=== PATIENT | female | born 1960 | race Caucasian/White ===

== ENCOUNTER 2018-04-13 21:54 | Inpatient (IN) | payer OTHER ==
[2018-04-13] MEDS ORDERED: SODIUM CHLORIDE 0.9% 1,000 ML IV STA (22:10)
[2018-04-13] MEDS ORDERED: SODIUM CHLORIDE 0.9% 500 ML 500 ML IV STA (22:10)
--- NOTE | 2018-04-13 22:13 | ED ---
Weakness HPI - General Stated complaint: Blood sugar 471, dehydrated, diarrhea Source: patient, family, RN notes reviewed, old records reviewed Mode of arrival: wheelchair Limitations: no limitations - History of Present Illness Initial comments: This is a 50-year-old female the ER for evaluation. Patient has no history of diabetes, patient is on insulin. Patient comes in today for uncontrolled blood sugars, generalized body pain and aches. Denies fever. She has 3 days of nausea vomiting and diarrhea decreased appetite. Weakness no known sick contacts, no recent hospitalizations. MD Complaint: generalized weakness, lack of energy, difficulty walking -: days(s) Location: generalized Severity: severe Severity scale (1-10): 9 Quality: aching Consistency: constant Improves with: none Worsens with: none Context: recent illness (Diarrhea) Associated Symptoms: loss of appetite, nausea/vomiting, shortness of breath - Related Data Home Medications Medication Instructions Recorded Confirmed No Known Home Medications 04/13/18 04/13/18 Allergies Allergy/AdvReac Type Severity Reaction Status Date / Time amoxicillin Allergy Rash/Hives Verified 04/13/18 23:45 Penicillins Allergy Unknown Verified 04/13/18 23:45 Childhood any medication with Gold Allergy Unknown Uncoded 04/13/18 22:13 Review of Systems ROS Statement: Those systems with pertinent positive or pertinent negative responses have been documented in the HPI. ROS Other: All systems not noted in ROS Statement are negative. 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 Absent: scleral icterus, conjunctival injection, periorbital swelling ENT exam: Present: normal exam, mucous membranes moist Neck exam: Present: normal inspection. Absent: tenderness, meningismus, lymphadenopathy Respiratory exam: Present: normal lung sounds bilaterally. Absent: respiratory distress, wheezes, rales, rhonchi, stridor Cardiovascular Exam: Present: regular rate, normal rhythm, normal heart sounds. Absent: systolic murmur, diastolic murmur, rubs, gallop, clicks GI/Abdominal exam: Present: soft, normal bowel sounds. Absent: distended, tenderness, guarding, rebound, rigid Extremities exam: Present: normal inspection, full ROM, normal capillary refill. Absent: tenderness, pedal edema, joint swelling, calf tenderness Back exam: Present: normal inspection Neurological exam: Present: alert, oriented X3, CN II-XII intact Psychiatric exam: Present: normal affect, normal mood Skin exam: Present: warm, dry, intact, normal color. Absent: rash Course Vital Signs 04/13/18 22:04 Temperature 97.9 F Pulse Rate 95 Respiratory 16 Rate Blood Pressure 99/66 O2 Sat by Pulse 100 Oximetry - Reevaluation(s) Reevaluation #1: 04/14/18 00:27 Medical record is reviewed Reevaluation #2: 04/14/18 00:27 Patient feeling better with symptomatic therapy EKG Findings - EKG Comments: EKG Findings:: EKG shows sinus tachycardia rate of 104, [place] 144, QRS 74, QTc 436 Medical Decision Making - Medical Decision Making 50 female the ER for evaluation presents for evaluation nausea vomiting diarrhea. Patient has diabetes, in acute DKA, patient be admitted for hydration monitoring of electrolytes and DKA protocol. - Lab Data Result diagrams: 04/13/18 23:00 04/13/18 23:00 Lab Results 04/13/18 04/13/18 04/13/18 Range/Units 23:00 23:00 23:00 WBC 19.8 H (3.8-10.6) k/uL RBC 4.09 (3.80-5.40) m/uL Hgb 11.4 (11.4-16.0) gm/dL Hct 35.5 (34.0-46.0) % MCV 87.0 (80.0-100.0) fL MCH 27.8 (25.0-35.0) pg MCHC 32.0 (31.0-37.0) g/dL RDW 13.5 (11.5-15.5) % Plt Count 315 (150-450) k/uL Neutrophils % 89 % Lymphocytes % 5 % Monocytes % 4 % Eosinophils % 0 % Basophils % 1 % Neutrophils # 17.6 H (1.3-7.7) k/uL Lymphocytes # 1.0 (1.0-4.8) k/uL Monocytes # 0.8 (0-1.0) k/uL Eosinophils # 0.0 (0-0.7) k/uL Basophils # 0.1 (0-0.2) k/uL PT (9.0-12.0) sec INR (<1.2) APTT (22.0-30.0) sec Sodium 128 L (137-145) mmol/L Potassium 4.3 (3.5-5.1) mmol/L Chloride 89 L (98-107) mmol/L Carbon Dioxide 17 L (22-30) mmol/L Anion Gap 22 mmol/L BUN 23 H (7-17) mg/dL Creatinine 0.70 (0.52-1.04) mg/dL Est GFR (CKD-EPI)AfAm >90 (>60 ml/min/1.73 sqM) Est GFR (CKD-EPI)NonAf >90 (>60 ml/min/1.73 sqM) Glucose 490 H (74-99) mg/dL Plasma Lactic Acid Segundo (0.7-2.0) mmol/L Calcium 8.6 (8.4-10.2) mg/dL Phosphorus 3.4 (2.5-4.5) mg/dL Magnesium 2.0 (1.6-2.3) mg/dL Total Bilirubin 0.6 (0.2-1.3) mg/dL AST 18 (14-36) U/L ALT 24 (9-52) U/L Alkaline Phosphatase 374 H (38-126) U/L Total Creatine Kinase 55 (30-135) U/L CK-MB (CK-2) 2.7 H (0.0-2.4) ng/mL CK-MB (CK-2) Rel Index 4.9 Troponin I <0.012 (0.000-0.034) ng/mL Total Protein 6.1 L (6.3-8.2) g/dL Albumin 3.1 L (3.5-5.0) g/dL Acetone, Qual Positive (Negative) 04/13/18 04/13/18 Range/Units 23:00 23:00 WBC (3.8-10.6) k/uL RBC (3.80-5.40) m/uL Hgb (11.4-16.0) gm/dL Hct (34.0-46.0) % MCV (80.0-100.0) fL MCH (25.0-35.0) pg MCHC (31.0-37.0) g/dL RDW (11.5-15.5) % Plt Count (150-450) k/uL Neutrophils % % Lymphocytes % % Monocytes % % Eosinophils % % Basophils % % Neutrophils # (1.3-7.7) k/uL Lymphocytes # (1.0-4.8) k/uL Monocytes # (0-1.0) k/uL Eosinophils # (0-0.7) k/uL Basophils # (0-0.2) k/uL PT 10.9 (9.0-12.0) sec INR 1.0 (<1.2) APTT 22.4 (22.0-30.0) sec Sodium (137-145) mmol/L Potassium (3.5-5.1) mmol/L Chloride (98-107) mmol/L Carbon Dioxide (22-30) mmol/L Anion Gap mmol/L BUN (7-17) mg/dL Creatinine (0.52-1.04) mg/dL Est GFR (CKD-EPI)AfAm (>60 ml/min/1.73 sqM) Est GFR (CKD-EPI)NonAf (>60 ml/min/1.73 sqM) Glucose (74-99) mg/dL Plasma Lactic Acid Segundo 2.4 H* (0.7-2.0) mmol/L Calcium (8.4-10.2) mg/dL Phosphorus (2.5-4.5) mg/dL Magnesium (1.6-2.3) mg/dL Total Bilirubin (0.2-1.3) mg/dL AST (14-36) U/L ALT (9-52) U/L Alkaline Phosphatase (38-126) U/L Total Creatine Kinase (30-135) U/L CK-MB (CK-2) (0.0-2.4) ng/mL CK-MB (CK-2) Rel Index Troponin I (0.000-0.034) ng/mL Total Protein (6.3-8.2) g/dL Albumin (3.5-5.0) g/dL Acetone, Qual (Negative) Disposition Clinical Impression: DKA (diabetic ketoacidoses) Disposition: ADMITTED IP TO THIS HOSP Condition: Fair Instructions: Diabetic Ketoacidosis (DC) Is patient prescribed a controlled substance at d/c from ED?: No Referrals: None,Stated [Primary Care Provider] - 1-2 days
[2018-04-13 23:11] LABS: Basophils # (A) 0.1 k/uL (0-0.2); Basophils % (A) 1 %; Eosinophils % (A) 0 %; HCT 35.5 % (34.0-46.0); HGB 11.4 gm/dL (11.4-16.0); Lymphocytes % (A) 5 %; MCH 27.8 pg (25.0-35.0); Mean Platelet Volume 7.9; Monocytes # (A) 0.8 k/uL (0-1.0); Monocytes % (A) 4 %; Neutrophils # (A) 17.6 k/uL (1.3-7.7); Neutrophils % (A) 89 %; Platelet Count 315 k/uL (150-450); RBC 4.09 m/uL (3.80-5.40); RDW 13.5 % (11.5-15.5); WBC 19.8 k/uL (3.8-10.6)
[2018-04-13 23:19] LABS: Partial Thromboplastin Time 22.4 sec (22.0-30.0); Prothrombin Time 10.9 sec (9.0-12.0)
[2018-04-13 23:26] LABS: ALT 24 U/L (9-52); AST 18 U/L (14-36); Albumin 3.1 g/dL (3.5-5.0); Alkaline Phosphatase 374 U/L (38-126); Anion Gap 22 mmol/L; Blood Urea Nitrogen 23 mg/dL (7-17); Calcium 8.6 mg/dL (8.4-10.2); Carbon Dioxide 17 mmol/L (22-30); Chloride 89 mmol/L (98-107); Glucose 490 mg/dL (74-99); Phosphorus 3.4 mg/dL (2.5-4.5); Potassium 4.3 mmol/L (3.5-5.1); Sodium 128 mmol/L (137-145); Total Bilirubin 0.6 mg/dL (0.2-1.3); Total Protein 6.1 g/dL (6.3-8.2)
[2018-04-13 23:35] LABS: Creatine Kinase 55 U/L (30-135)
--- NOTE | 2018-04-13 23:42 | XR ---
EXAMINATION TYPE: XR chest 2V DATE OF EXAM: 04/13/2018 COMPARISON: NONE HISTORY: Diabetes TECHNIQUE: Frontal and lateral views of the chest are obtained. FINDINGS: There is no heart failure nor confluent pneumonic infiltrate. There is slight elevated rig ht diaphragm. There is no pleural effusion. Heart size is normal. There are chest leads. IMPRESSION: No active cardiopulmonary disease.
[2018-04-13 23:48] LABS: Creatine Kinase MB 2.7 ng/mL (0.0-2.4); Troponin I <0.012 ng/mL (0.000-0.034)
[2018-04-14] MEDS ORDERED: ONDANSETRON 4 MG/2 ML VIAL IVP STA (00:40)
[2018-04-14] MEDS ORDERED: MORPHINE SULFATE 4 MG/ML SYRINGE IVP PRN (00:55)
[2018-04-14] MEDS ORDERED: MORPHINE SULFATE 4 MG/ML SYRINGE IVP STA (00:55)
[2018-04-14] MEDS: INSULIN REGULAR 100 UNIT in SODIUM CHLORIDE 0.9% 100 ML IV SCH ×2 (01:01→10:18)
[2018-04-14] MEDS: SODIUM CHLORIDE 0.9% 1,000 ML IV SCH ×5 (02:00→13:13)
[2018-04-14] MEDS ORDERED: NALOXONE 0.4 MG/ML 1 ML VIAL IV PRN (02:11)
--- NOTE | 2018-04-14 02:22 | P.HPIM ---
History of Present Illness H&P Date: 04/14/18 Chief Complaint: Generalized weakness polydipsia polyuria 58-year-old female with history of diabetes however not on any medications as patient unable to afford. Patient presented the hospital due to 2-3 day history of generalized weakness for appetite polyuria polydipsia belly cramps. Today she almost passed out and family insisted on bringing her to the hospital for further evaluation. She has been over the past 8 years controlling her sugars with dietary control and drinking lot of water. She denies any recent sick contacts or hospitalization. She denies any symptoms suggestive of urinary tract infection or upper respiratory infection. Patient is accompanied by her daughters. She is more awake now during my interview. Patient denies any chest pain or trouble breathing denies any headache denies any focal neurologic deficits at this point denies any GI bleeding. In the emergency department she was found to be in acute DKA and was started on DKA pathway Review of Systems Pertinent positives as noted in HPI. All other systems were reviewed and are negative Past Medical History Past Medical History: Diabetes Mellitus, Fibromyalgia, Thyroid Disorder Additional Past Medical History / Comment(s): valley fever History of Any Multi-Drug Resistant Organisms: None Reported Past Surgical History: Section, Cholecystectomy Additional Past Surgical History / Comment(s): partial thyroidectomy Past Anesthesia/Blood Transfusion Reactions: Postoperative Nausea & Vomiting ( PONV) Additional Past Anesthesia/Blood Transfusion Reaction / Comment(s): no hx of BT Smoking Status: Never smoker - Past Family History Father Additional Family Medical History / Comment(s): from "blood clot" after surgery. Pt can't remember the name of the surgery Mother Additional Family Medical History / Comment(s): severe arthritis Medications and Allergies Home Medications Medication Instructions Recorded Confirmed Type No Known Home Medications 04/13/18 04/13/18 History Allergies Allergy/AdvReac Type Severity Reaction Status Date / Time amoxicillin Allergy Rash/Hives Verified 04/13/18 23:45 Penicillins Allergy Unknown Verified 04/13/18 23:45 Childhood any medication with Gold Allergy Unknown Uncoded 04/13/18 22:13 Physical Exam Vitals: Vital Signs Temp Pulse Pulse Resp BP BP Pulse Ox 04/14/18 01:55 99.4 F 105 H 17 133/85 97 04/14/18 01:04 104 H 20 129/70 99 04/13/18 22:04 97.9 F 95 16 99/66 100 Intake and Output 04/13/18 04/13/18 04/14/18 14:59 22:59 06:59 Intake Total 800 Balance 800 Intake: Amount of Fluid Infused ( 800 ml) Other: Weight 110.677 kg 107.5 kg Constitutional: No acute distress, conversant, pleasant patient looks sleepy Eyes: Anicteric sclerae, moist conjunctiva, no lid-lag Pupils equal round reactive to light ENMT: NC/AT Oropharynx clear, no erythema, exudates Neck: Supple, FROM, no masses, or JVD No carotid bruits No thyromegaly Lungs: Clear to auscultation Clear to percussion Normal respiratory effort, no accessory muscle use Cardiovascular: Heart regular in rate and rhythm, No murmurs, gallops, or rubs No peripheral edema Abdominal: Rash in the right groin with foul smell and tenderness to palpation. Soft Nontender, no guarding, rebound or rigidity Abdomen moving with respiration Normoactive bowel sounds No hepatomegaly, No splenomegaly No palpable mass No abdominal wall hernia noted Skin: Rash in the right groin area moist with foul smell and slightly tender to palpation Otherwise Normal temperature, tone, texture, turgor No induration No subcutaneous nodules No ulcers Extremities: No digital cyanosis No clubbing Pedal pulses intact and symmetrical Radial pulses intact and symmetrical No calf tenderness Psychiatric: Alert and oriented to person, place and time Appropriate affect fair judgment Neuro Muscles Strength 4/5 in all 4 extremities Sensation to light touch grossly present throughout Cranial nerves II-XII grossly intact No focal sensory deficits Lymphatics: no palpable cervical or supraclavicular , or inguinal lymph nodes Results CBC & Chem 7: 04/13/18 23:00 04/13/18 23:00 Labs: Abnormal Lab Results - Last 24 Hours (Table) 04/13/18 04/13/18 04/13/18 Range/Units 23:00 23:00 23:00 WBC 19.8 H (3.8-10.6) k/uL Neutrophils # 17.6 H (1.3-7.7) k/uL Sodium 128 L (137-145) mmol/L Chloride 89 L (98-107) mmol/L Carbon Dioxide 17 L (22-30) mmol/L BUN 23 H (7-17) mg/dL Glucose 490 H (74-99) mg/dL Plasma Lactic Acid Segundo (0.7-2.0) mmol/L Alkaline Phosphatase 374 H (38-126) U/L CK-MB (CK-2) 2.7 H (0.0-2.4) ng/mL Total Protein 6.1 L (6.3-8.2) g/dL Albumin 3.1 L (3.5-5.0) g/dL 04/13/18 Range/Units 23:00 WBC (3.8-10.6) k/uL Neutrophils # (1.3-7.7) k/uL Sodium (137-145) mmol/L Chloride (98-107) mmol/L Carbon Dioxide (22-30) mmol/L BUN (7-17) mg/dL Glucose (74-99) mg/dL Plasma Lactic Acid Segundo 2.4 H* (0.7-2.0) mmol/L Alkaline Phosphatase (38-126) U/L CK-MB (CK-2) (0.0-2.4) ng/mL Total Protein (6.3-8.2) g/dL Albumin (3.5-5.0) g/dL Assessment and Plan Assessment: 58-year-old female with history of diabetes mellitus is admitted as an inpatient with anticipated length of stay more than 48 hours resides in with DKA patient has not been taking any medications for her diabetes mellitus for the past 8 years as patient didn't have any insurance. She was managing with diet control. She denies any symptoms suggestive of upper respiratory infection or urinary tract infection. 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
[2018-04-14 02:30] LABS: Glucose,Whole Blood 340 mg/dL (75-99)
[2018-04-14] MEDS ORDERED: TRIAMCINOLONE ACET 0.5% CREAM 15 GM TUBE TOPICAL PRN (02:30)
[2018-04-14 03:11] LABS: Glucose,Whole Blood 261 mg/dL (75-99)
[2018-04-14] MEDS: D5-0.45% NACL WITH KCL 20MEQ/L 1,000 ML IV SCH ×2 (03:15→11:08)
[2018-04-14] MEDS: NYSTATIN 100,000UNIT/GM CREAM 30 GM TUBE TOPICAL SCH ×5 (03:49→21:49)
[2018-04-14 04:02] LABS: Anion Gap 18 mmol/L; Blood Urea Nitrogen 22 mg/dL (7-17); Carbon Dioxide 18 mmol/L (22-30); Chloride 95 mmol/L (98-107); Glucose 219 mg/dL (74-99); Phosphorus 2.3 mg/dL (2.5-4.5); Potassium 3.6 mmol/L (3.5-5.1); Sodium 131 mmol/L (137-145)
[2018-04-14 04:11] LABS: Glucose,Whole Blood 185 mg/dL (75-99)
[2018-04-14 05:09] LABS: Glucose,Whole Blood 147 mg/dL (75-99)
[2018-04-14] MEDS: ONDANSETRON 4 MG/2 ML VIAL IVP PRN ×2 (05:43→23:05)
[2018-04-14 06:00] LABS: Appearance,Urine Clear (Clear); Bacteria,Urine Rare /hpf; Bilirubin,Urine 1+ (Negative); Blood,Urine Negative (Negative); Color,Urine Yellow; Glucose,Urine (UA) 4+ (Negative); Leukocyte Esterase,Urine Negative (Negative); Mucus,Urine Rare /hpf; Nitrite,Urine Negative (Negative); PH, Urine 5.5 (5.0-8.0); Protein,Urine 1+ (Negative); RBC,Urine 1 /hpf (0-5); Specific Gravity,Urine 1.021 (1.001-1.035); WBC,Urine 4 /hpf (0-5)
[2018-04-14 06:14] LABS: Glucose,Whole Blood 135 mg/dL (75-99)
[2018-04-14 06:50] LABS: Ketones,Urine 3+ (Negative)
[2018-04-14 07:31] LABS: Glucose,Whole Blood 167 mg/dL (75-99)
[2018-04-14 07:33] LABS: Basophils # (A) 0.1 k/uL (0-0.2); Basophils % (A) 0 %; Eosinophils # (A) 0.1 k/uL (0-0.7); Eosinophils % (A) 1 %; HCT 32.7 % (34.0-46.0); HGB 10.7 gm/dL (11.4-16.0); Lymphocytes # (A) 1.1 k/uL (1.0-4.8); Lymphocytes % (A) 6 %; MCH 27.7 pg (25.0-35.0); MCHC 32.7 g/dL (31.0-37.0); MCV 84.8 fL (80.0-100.0); Mean Platelet Volume 7.5; Monocytes # (A) 0.7 k/uL (0-1.0); Monocytes % (A) 4 %; Neutrophils # (A) 16.6 k/uL (1.3-7.7); Neutrophils % (A) 88 %; Platelet Count 303 k/uL (150-450); RBC 3.86 m/uL (3.80-5.40); RDW 13.6 % (11.5-15.5); WBC 18.9 k/uL (3.8-10.6)
[2018-04-14 07:53] LABS: ALT 17 U/L (9-52); AST 24 U/L (14-36); Albumin 2.7 g/dL (3.5-5.0); Alkaline Phosphatase 331 U/L (38-126); Anion Gap 14 mmol/L; Blood Urea Nitrogen 23 mg/dL (7-17); Calcium 8.5 mg/dL (8.4-10.2); Carbon Dioxide 23 mmol/L (22-30); Chloride 96 mmol/L (98-107); Glucose 153 mg/dL (74-99); Magnesium 1.9 mg/dL (1.6-2.3); Phosphorus 1.8 mg/dL (2.5-4.5); Potassium 3.8 mmol/L (3.5-5.1); Sodium 133 mmol/L (137-145); Total Bilirubin 0.7 mg/dL (0.2-1.3); Total Protein 5.8 g/dL (6.3-8.2)
[2018-04-14 08:09] LABS: Glucose,Whole Blood 155 mg/dL (75-99)
[2018-04-14] MEDS: HEPARIN SODIUM,PORCINE 5,000 UNIT/ML 1 ML VIAL SQ SCH ×3 (08:22→23:05)
[2018-04-14] MEDS: TRIAMCINOLONE ACET 0.5% CREAM 15 GM TUBE TOPICAL SCH ×4 (08:22→21:49)
[2018-04-14 10:08] LABS: Glucose,Whole Blood 180 mg/dL (75-99)
[2018-04-14 10:08] LABS: Glucose,Whole Blood 235 mg/dL (75-99)
[2018-04-14 11:32] LABS: Glucose,Whole Blood 219 mg/dL (75-99)
[2018-04-14 11:54] VITALS: BMI 37.6
[2018-04-14 12:12] LABS: Glucose,Whole Blood 238 mg/dL (75-99)
[2018-04-14] MEDS: INSULIN DETEMIR 100 UNIT/ML 10 ML VIAL SQ SCH ×2 (13:13→20:51)
[2018-04-14] MEDS: INSULIN ASPART 100 UNIT/ML 1 ML 10 ML VIAL SQ SCH ×3 (13:13→20:51)
[2018-04-14 13:30] LABS: HCT 31.7 % (34.0-46.0); MCH 26.9 pg (25.0-35.0); MCHC 31.5 g/dL (31.0-37.0); MCV 85.6 fL (80.0-100.0); Mean Platelet Volume 7.6; Platelet Count 331 k/uL (150-450); RDW 13.4 % (11.5-15.5); WBC 20.6 k/uL (3.8-10.6)
[2018-04-14 13:40] LABS: ALT 26 U/L (9-52); AST 26 U/L (14-36); Albumin 2.5 g/dL (3.5-5.0); Alkaline Phosphatase 331 U/L (38-126); Anion Gap 12 mmol/L; Blood Urea Nitrogen 24 mg/dL (7-17); Calcium 8.3 mg/dL (8.4-10.2); Carbon Dioxide 21 mmol/L (22-30); Chloride 97 mmol/L (98-107); Glucose 228 mg/dL (74-99); Sodium 130 mmol/L (137-145); Total Bilirubin 0.7 mg/dL (0.2-1.3); Total Protein 5.4 g/dL (6.3-8.2)
[2018-04-14 16:26] LABS: Glucose,Whole Blood 206 mg/dL (75-99)
[2018-04-14 20:39] LABS: Glucose,Whole Blood 175 mg/dL (75-99)
[2018-04-14 23:01] LABS: Hemoglobin A1C 12.7 % (4.0-6.0)
[2018-04-14] MEDS ORDERED: ACETAMINOPHEN IV (For NPO) 1,000 MG in EMPTY BAG 1 BAG IVPB ONE (23:27)
[2018-04-14 23:52] LABS: HCT 33.8 % (34.0-46.0); HGB 10.7 gm/dL (11.4-16.0); MCH 27.3 pg (25.0-35.0); MCHC 31.7 g/dL (31.0-37.0); MCV 86.1 fL (80.0-100.0); Mean Platelet Volume 7.4; Platelet Count 345 k/uL (150-450); RBC 3.92 m/uL (3.80-5.40); RDW 13.4 % (11.5-15.5); WBC 20.8 k/uL (3.8-10.6)
--- NOTE | 2018-04-14 23:52 | P.PN ---
Progress Note - Text Progress Note Date: 04/14/18 I was called by RN , due to fever. I went to evaluate the patient . she looks tired and sick. she follows commands , not in any distress . looks lethargic but easily arousable and cooperative she denies any headaches, vision changes, hearing changes, speech changes, or any focal neuro deficits. she denies any chest pain or trouble breathing, denies any abd pain. she just feels tired and sick to the stomach. no vomiting. on exam , lungs sounds clear, heart normal S1 S2, regular, no abd tenderness, BS positive, no leg edema, no focal neuro deficits grossly power and sensation is intact throughout. no neck stiffness. vital signs are stable, but patient is febrile temp 102 labs from this morning reviewed, reflects hyponatremia which is thought to be psuedohyponatremia due to hyperglycemia. leukocytosis which was initially thought to be reactive to hyperglycemia, however it went up since presentation which is concerning for infectious process. urinalysis from yesterday reviewed, and unremarkable CXR unremarkable plan IVF hydration due to poor PO intake check blood culture repeat CBC and CMP stat tylenol for fever. i will review lab results once made available if patient spikes another fever, I will consider performing LP, and starting patient on antibiotic. patient and family agrees with above plan
[2018-04-14] MEDS ORDERED: SODIUM CHLORIDE 0.9% 1,000 ML IV ONE (23:53)
[2018-04-15 00:04] LABS: ALT 19 U/L (9-52); AST 29 U/L (14-36); Albumin 2.5 g/dL (3.5-5.0); Alkaline Phosphatase 351 U/L (38-126); Anion Gap 11 mmol/L; Blood Urea Nitrogen 21 mg/dL (7-17); Calcium 8.1 mg/dL (8.4-10.2); Carbon Dioxide 21 mmol/L (22-30); Chloride 99 mmol/L (98-107); Glucose 180 mg/dL (74-99); Sodium 131 mmol/L (137-145); Total Bilirubin 0.9 mg/dL (0.2-1.3); Total Protein 5.5 g/dL (6.3-8.2)
[2018-04-15 00:43] LABS: Band Neutrophils % 31 %; Lymphocytes # (M) 2.91 k/uL (1.0-4.8); Monocytes # (M) 0.42 k/uL (0-1.0); Neutrophils % (M) 54 %; Nucleated Red Blood Cells 0 /100 WBC (0-0); Total Cells Counted 200
[2018-04-15 00:45] LABS: Anisocytosis (M) Present; Polychromasia Present
[2018-04-15 00:46] LABS: Toxic Granulation Present; Toxic Vacuolation Present
[2018-04-15] MEDS: IBUPROFEN 400 MG TAB PO PRN ×2 (03:00→09:30)
[2018-04-15] MEDS: SODIUM CHLORIDE 0.9% 1,000 ML IV SCH ×2 (03:01→07:48)
[2018-04-15 05:59] LABS: Glucose,Whole Blood 156 mg/dL (75-99)
[2018-04-15] MEDS: INSULIN ASPART 100 UNIT/ML 1 ML 10 ML VIAL SQ SCH ×2 (06:51→13:00)
[2018-04-15 07:11] LABS: HCT 32.5 % (34.0-46.0); HGB 10.6 gm/dL (11.4-16.0); MCH 28.2 pg (25.0-35.0); MCHC 32.5 g/dL (31.0-37.0); MCV 86.6 fL (80.0-100.0); Mean Platelet Volume 8.1; Platelet Count 337 k/uL (150-450); RBC 3.76 m/uL (3.80-5.40); RDW 13.7 % (11.5-15.5); WBC 20.2 k/uL (3.8-10.6)
[2018-04-15] MEDS: HEPARIN SODIUM,PORCINE 5,000 UNIT/ML 1 ML VIAL SQ SCH (07:48)
[2018-04-15] MEDS: NYSTATIN 100,000UNIT/GM CREAM 30 GM TUBE TOPICAL SCH ×2 (07:49→13:09)
[2018-04-15] MEDS: TRIAMCINOLONE ACET 0.5% CREAM 15 GM TUBE TOPICAL SCH ×2 (07:49→13:10)
[2018-04-15] MEDS: INSULIN DETEMIR 100 UNIT/ML 10 ML VIAL SQ SCH (07:54)
[2018-04-15 07:55] LABS: Anion Gap 11 mmol/L; Blood Urea Nitrogen 21 mg/dL (7-17); Calcium 7.7 mg/dL (8.4-10.2); Carbon Dioxide 20 mmol/L (22-30); Chloride 102 mmol/L (98-107); Glucose 152 mg/dL (74-99); Magnesium 1.9 mg/dL (1.6-2.3); Potassium 3.7 mmol/L (3.5-5.1); Sodium 133 mmol/L (137-145)
[2018-04-15 11:10] LABS: Glucose,Whole Blood 158 mg/dL (75-99)
[2018-04-15] MEDS: ONDANSETRON 4 MG/2 ML VIAL IVP PRN (11:14)
[2018-04-15] MEDS ORDERED: SODIUM CHLORIDE 0.9% 1,000 ML IV SCH ×2 (12:00→17:45)
[2018-04-15 12:47] LABS: Appearance,Urine Cloudy (Clear); Bacteria,Urine Rare /hpf; Bilirubin,Urine 1+ (Negative); Blood,Urine Small (Negative); Color,Urine Orange; Glucose,Urine (UA) Negative (Negative); Ketones,Urine Negative (Negative); Leukocyte Esterase,Urine Moderate (Negative); Mucus,Urine Rare /hpf; Nitrite,Urine Negative (Negative); PH, Urine 5.5 (5.0-8.0); Protein,Urine 1+ (Negative); RBC,Urine 3 /hpf (0-5); Specific Gravity,Urine 1.026 (1.001-1.035); Squamous Epithelial Cell,Urine 1 /hpf (0-4); WBC,Urine 26 /hpf (0-5)
[2018-04-15 12:52] LABS: Band Neutrophils % 7 %; Lymphocytes # (M) 1.62 k/uL (1.0-4.8); Metamyelocytes % 2 %; Monocytes # (M) 1.62 k/uL (0-1.0); Myelocytes % 1 %; Neutrophils % (M) 75 %; Nucleated Red Blood Cells 0 /100 WBC (0-0); Total Cells Counted 200
[2018-04-15 12:53] LABS: Toxic Granulation Present
[2018-04-15] MEDS ORDERED: LEVOFLOXACIN 750MG-D5W PMX 750 MG in DEXTROSE/WATER 1 150ML.BAG IVPB SCH (13:00)
[2018-04-15] MEDS ORDERED: metroNIDAZOLE-NS PMX 500 MG in SALINE 1 100ML.BAG IVPB SCH ×2 (13:00→17:45)
--- NOTE | 2018-04-15 13:07 | CT ---
EXAMINATION TYPE: CT abdomen pelvis w con DATE OF EXAM: 04/15/2018 REFERENCE: None. HISTORY: pain, fever HISTORY: Generalized pain. Right sided yeast infection with blistering per patient RN. No Recent vargas rgical procedures REFERENCE: NONE CT DLP: 1552.4 mGy Automated exposure control for dose reduction was used. TECHNIQUE: Helical acquisition through the abdomen and pelvis was obtained following the oral ingesti on of without Oral Contrast and following intravenous administration of 100 mL of Isovue 300. The cornel a was reformatted in axial, coronal and sagittal projections. FINDINGS: There is minimal dependent atelectasis within the dependent portions of the lungs. There i s no pleural or pericardial fluid. Heart size is upper limits of normal. There is a partial eventration of the right hemidiaphragm. The liver is prominent measuring 24 cm. Th is is mostly due to a Harshal's lobe. The gallbladder is been removed. The spleen is unremarkable. Both adrenal glands are normal. There is mild stranding around both kidneys. The kidneys are otherwise morphologically normal. The pancreas is unremarkable. There is no significant retroperitoneal, inguinal or iliac adenopathy. There is a large open wound in the right lower quadrant the subcutaneous emphysema extending up to fl ank of the patient with surrounding inflammatory change. There is a Thao catheter within the bladder. The uterus is unremarkable. The ovaries are not visualized with certainty. There is no significant diverticular change and there is no radiographic evidence of diverticulitis. The appendix is not visualized with certainty. There is no free fluid and no free air. There is degenerative disc disease and hypertrophic spondylosis within the spine. IMPRESSION: 1. LARGE OPEN WOUND IN THE RIGHT ANTERIOR ABDOMEN EXTENDING UP THE RIGHT SIDE OF THE PATIENT'S SUBCUT ANEOUS TO THE FLANK WITH ASSOCIATED INFLAMMATORY CHANGE. 2. HEPATOMEGALY. 3. DEGENERATIVE CHANGE WITHIN THE SPINE.
[2018-04-15] MEDS ORDERED: VANCOMYCIN IV PER PHARMACY 1 EACH MISC MISCELLANE PRN (13:40)
[2018-04-15] MEDS ORDERED: ACETAMINOPHEN TAB 325 MG TAB PO PRN (13:55)
[2018-04-15] MEDS ORDERED: ONDANSETRON 4 MG/2 ML VIAL IVP PRN (13:55)
--- NOTE | 2018-04-15 13:57 | P.PN ---
Subjective Progress Note Date: 04/15/18 Principal diagnosis: Severe sepsis Please see below Objective - Vital Signs Vital signs: Vital Signs Temp 98.2 F 04/15/18 11:44 Pulse 85 04/15/18 11:49 Resp 18 04/15/18 11:49 BP 78/43 04/15/18 13:27 Pulse Ox 97 04/15/18 08:03 Intake & Output 04/14/18 04/15/18 04/15/18 18:59 06:59 18:59 Intake Total 226.585 9400 80 Output Total 550 Balance 438.421 0564 80 Weight 109 kg 116.8 kg Intake: Intake, IV Titration 020.249 3349 Amount ACETAMINOPHEN IV (For NPO 400 ) 1,000 mg In Empty Bag 1 bag @ 400 mls/hr IVPB ONCE ONE Rx#:[id number] D5-0.45% NaCl with KCl 750 20Meq/l 1,000 ml @ 150 mls/hr IV .Q6H40M [facility] Rx# :[id number] Insulin Regular 100 unit 20.650 In Sodium Chloride 0.9% 100 ml @ 0.1 UNITS/KG/HR 11.17 mls/hr IV .Q9H3M [facility] Rx#:[id number] Sodium Chloride 0.9% 1, 500 000 ml @ 100 mls/hr IV . Q10H [facility] Rx#:[id number] Sodium Chloride 0.9% 1, 900 000 ml @ 150 mls/hr IV . Q6H40M [facility] Rx#:[id number] Sodium Chloride 0.9% 1, 1000 000 ml @ 999 mls/hr IV . Q1H1M [facility] Rx#:[id number] Oral 222 400 80 Output: Urine 550 Other: Voiding Method Diaper Bedside Commode Bedside Commode Incontinent Diaper Diaper Incontinent Incontinent # Voids 1 - Exam General: The patient is awake and alert, she appears acutely ill. Patient is pale Eye: there is normal conjunctiva bilaterally. Cardiovascular: Normal S1-S2, no S3-S4, no murmurs. Respiratory: Lungs clear to auscultation bilaterally Gastrointestinal: Abdomen is soft, and nondistended. There is mild tenderness to palpation. There is area of induration involving the right lower quadrant/ groin area with surrounding area of erythema that was warm and tender to touch Musculoskeletal: There is no pedal edema. Neurological:. Speech is normal. Skin: Skin is warm and dry - Labs CBC & Chem 7: 04/15/18 06:00 04/15/18 06:00 Labs: Abnormal Lab Results - Last 24 Hours (Table) 04/14/18 04/14/18 04/14/18 Range/Units 12:58 16:24 20:38 WBC (3.8-10.6) k/uL RBC (3.80-5.40) m/uL Hgb (11.4-16.0) gm/dL Hct (34.0-46.0) % Neutrophils # (Manual) (1.3-7.7) k/uL Monocytes # (Manual) (0-1.0) k/uL Metamyelocytes # (Man) (0) k/uL Myelocytes # (Manual) (0) k/uL Sodium (137-145) mmol/L Carbon Dioxide (22-30) mmol/L BUN (7-17) mg/dL Glucose (74-99) mg/dL POC Glucose (mg/dL) 206 H 175 H (75-99) mg/dL Hemoglobin A1c 12.7 H (4.0-6.0) % Plasma Lactic Acid Segundo (0.7-2.0) mmol/L Calcium (8.4-10.2) mg/dL Alkaline Phosphatase (38-126) U/L Total Protein (6.3-8.2) g/dL Albumin (3.5-5.0) g/dL Urine Appearance (Clear) Urine Protein (Negative) Urine Blood (Negative) Urine Bilirubin (Negative) Ur Leukocyte Esterase (Negative) Urine WBC (0-5) /hpf Urine WBC Clumps (None) /hpf Urine Bacteria (None) /hpf Urine Mucus (None) /hpf 04/14/18 04/14/18 04/15/18 Range/Units 23:36 23:36 05:57 WBC 20.8 H (3.8-10.6) k/uL RBC (3.80-5.40) m/uL Hgb 10.7 L (11.4-16.0) gm/dL Hct 33.8 L (34.0-46.0) % Neutrophils # (Manual) 17.60 H (1.3-7.7) k/uL Monocytes # (Manual) (0-1.0) k/uL Metamyelocytes # (Man) (0) k/uL Myelocytes # (Manual) (0) k/uL Sodium 131 L (137-145) mmol/L Carbon Dioxide 21 L (22-30) mmol/L BUN 21 H (7-17) mg/dL Glucose 180 H (74-99) mg/dL POC Glucose (mg/dL) 156 H (75-99) mg/dL Hemoglobin A1c (4.0-6.0) % Plasma Lactic Acid Segundo (0.7-2.0) mmol/L Calcium 8.1 L (8.4-10.2) mg/dL Alkaline Phosphatase 351 H (38-126) U/L Total Protein 5.5 L (6.3-8.2) g/dL Albumin 2.5 L (3.5-5.0) g/dL Urine Appearance (Clear) Urine Protein (Negative) Urine Blood (Negative) Urine Bilirubin (Negative) Ur Leukocyte Esterase (Negative) Urine WBC (0-5) /hpf Urine WBC Clumps (None) /hpf Urine Bacteria (None) /hpf Urine Mucus (None) /hpf 04/15/18 04/15/18 04/15/18 Range/Units 06:00 06:00 11:09 WBC 20.2 H (3.8-10.6) k/uL RBC 3.76 L (3.80-5.40) m/uL Hgb 10.6 L (11.4-16.0) gm/dL Hct 32.5 L (34.0-46.0) % Neutrophils # (Manual) 16.50 H (1.3-7.7) k/uL Monocytes # (Manual) 1.62 H (0-1.0) k/uL Metamyelocytes # (Man) 0.40 H (0) k/uL Myelocytes # (Manual) 0.20 H (0) k/uL Sodium 133 L (137-145) mmol/L Carbon Dioxide 20 L (22-30) mmol/L BUN 21 H (7-17) mg/dL Glucose 152 H (74-99) mg/dL POC Glucose (mg/dL) 158 H (75-99) mg/dL Hemoglobin A1c (4.0-6.0) % Plasma Lactic Acid Segundo (0.7-2.0) mmol/L Calcium 7.7 L (8.4-10.2) mg/dL Alkaline Phosphatase (38-126) U/L Total Protein (6.3-8.2) g/dL Albumin (3.5-5.0) g/dL Urine Appearance (Clear) Urine Protein (Negative) Urine Blood (Negative) Urine Bilirubin (Negative) Ur Leukocyte Esterase (Negative) Urine WBC (0-5) /hpf Urine WBC Clumps (None) /hpf Urine Bacteria (None) /hpf Urine Mucus (None) /hpf 04/15/18 04/15/18 Range/Units 12:19 13:06 WBC (3.8-10.6) k/uL RBC (3.80-5.40) m/uL Hgb (11.4-16.0) gm/dL Hct (34.0-46.0) % Neutrophils # (Manual) (1.3-7.7) k/uL Monocytes # (Manual) (0-1.0) k/uL Metamyelocytes # (Man) (0) k/uL Myelocytes # (Manual) (0) k/uL Sodium (137-145) mmol/L Carbon Dioxide (22-30) mmol/L BUN (7-17) mg/dL Glucose (74-99) mg/dL POC Glucose (mg/dL) (75-99) mg/dL Hemoglobin A1c (4.0-6.0) % Plasma Lactic Acid Segundo 4.4 H* (0.7-2.0) mmol/L Calcium (8.4-10.2) mg/dL Alkaline Phosphatase (38-126) U/L Total Protein (6.3-8.2) g/dL Albumin (3.5-5.0) g/dL Urine Appearance Cloudy H (Clear) Urine Protein 1+ H (Negative) Urine Blood Small H (Negative) Urine Bilirubin 1+ H (Negative) Ur Leukocyte Esterase Moderate H (Negative) Urine WBC 26 H (0-5) /hpf Urine WBC Clumps Occasional H (None) /hpf Urine Bacteria Rare H (None) /hpf Urine Mucus Rare H (None) /hpf Microbiology - Last 24 Hours (Table) 04/14/18 05:21 Urine Culture - Final Urine,Catheterized Assessment and Plan Assessment: This is a 58-year-old female with past medical history significant for uncontrolled type 2 diabetes who presented to the hospital originally with generalized weakness and abdominal cramps. Patient was evaluated in the emergency room and was found to have mild DKA. She was started on insulin drip and was admitted to the hospital for further evaluation. Initial workup was negative for any source of infection including a normal urinalysis and a normal chest x-ray. Last night around midnight patient spiked a high-grade fever of 102.2 that he had no source of infection was identified. Patient was seen by me this morning and was noted to be clammy and weak. Pressure systolic was in the low 80s. A stat lactic acid was elevated at 4.4. Noted in the right lower quadrant/groin area and area of induration with an open wound and surrounding erythema concerning for underlying abscess formation. Computed tomography scan of the abdomen ordered with no acute intra-abdominal findings and he described large open wound in the right anterior abdomen extending up to the right flank. There was no fluid collection described. Patient was started on broad- spectrum antibiotic with vancomycin, Levaquin, and Flagyl. Blood culture sent. Below is a list of her medical problems. 1. Severe sepsis with septic shock, patient received 1 L of normal saline bolus and currently getting a second liter. We will continue to monitor her blood pressure closely if not improving may require vasopressors. Critical care consulted in anticipation of an ICU transfer. Broad-spectrum antibiotic administered. Repeat lactic acid ordered. 2. Large area of cellulitis involving the abdominal wall with large area of induration and no described fluid collection on computed tomography scan. I will consult general surgery for further evaluation if any I and D is required 3. Uncontrolled type 2 diabetes mellitus with A1c of 12.7 secondary to noncompliance. Patient did not take any medication at home for long time. Currently blood glucose is well controlled with current insulin regimen. 4. Mild DKA on presentation, IV insulin drip was discontinued. Anion gap closed. 5. Urinary retention with more than 600 mL of urine on bladder scan. Status post Thao catheter insertion Today, I reviewed her medication list and lab work results. Continue aggressive IV fluid resuscitation. Broad-spectrum antibiotic. Appreciate oracle application consultant's recommendations. Patient's and her family at bedside including her and niece were updated about her current clinical condition. I informed them that she is in the critical condition and may require transfer to the ICU. All of their questions answered to their satisfaction.
[2018-04-15] MEDS ORDERED: VANCOMYCIN 2,000 MG in SODIUM CHLORIDE 0.9% 500 ML 500 ML IVPB ONE (14:00)
[2018-04-15] MEDS ORDERED: PANTOPRAZOLE 40 MG/10 ML VIAL IVP SCH (14:00)
[2018-04-15] MEDS ORDERED: SODIUM CHLORIDE 0.9% 1,000 ML IV ONE (14:24)
[2018-04-15 16:23] LABS: Glucose,Whole Blood 220 mg/dL (75-99)
--- NOTE | 2018-04-15 16:58 | P.GSCN ---
History of Present Illness Consult date: 04/15/18 History of present illness: CHIEF COMPLAINT: Infection right groin HISTORY OF PRESENT ILLNESS: The patient is a 58-year-old female who presented with lack of any medical care who presented with acute diabetic ketoacidosis secondary to poorly controlled diabetes, blood sugars over 400. She has not had insurance in over 8 years. Her family is at bedside reports that she has been managing her diabetes on her own without insulin or checking her blood sugars. Patient reports feeling ill for one to 2 weeks. Since her hospitalization last 2 days, fevers were as high as 102. Incidental finding of foul-smelling right inguinal crease noted. Patient was being treated topically using antifungal. Patient also presents with morbid obesity, BMI of 40. General surgery consultation was sought for questionable right groin abscess. At the time of my assessment, patient is being transferred to the intensive care unit secondary to hypotension. Incidentally, her white blood cell count on presentation was over 18,000. Infectious disease consultation is pending. PAST MEDICAL HISTORY: See list. PAST SURGICAL HISTORY: See list. MEDICATIONS: See list. ALLERGIES: See list. SOCIAL HISTORY: No illicit drug use FAMILY HISTORY: Diabetes, morbid obesity REVIEW OF ORGAN SYSTEMS: CONSTITUTIONAL: Has fevers over 102 in the last 24 hours. Overweight 100+ pounds. HEENT: No troubles with vision or hearing. No reports of dysphagia. ENDOCRINE: No reports of thyroid disorders. Poorly controlled diabetes. Initial blood sugars over 400. CARDIOVASCULAR: No heart attack. No chest pain. Currently hypotensive with systolic blood pressures under 100. RESPIRATORY: No shortness of breath or pneumonia. Chest x-ray negative upon presentation to the ER. GASTROINTESTINAL: No reports of recent blood in stools. NEURO: No reports of stroke or seizure disorders. History of headaches. PSYCH: No depression or suicidal ideation HEMATOLOGIC: No easy bruising or bleeding LYMPHATIC: No history of lymphoma. GENITOURINARY: Has unit tract infection on presentation to the ER. MUSCULOSKELETAL: Has back pain, stiffness or joint arthritis. SKIN: No skin cancer or rash. PHYSICAL EXAM: VITAL SIGNS: Reviewed GENERAL: Well-developed and lethargic. HEENT: No sclera icterus. Extraocular movements grossly intact. Moist buccal mucosa. Head is atraumatic, normocephalic. Hears conversational speech. No nasal drainage. Wash cloth on forehead NECK: Supple without lymphadenopathy. CHEST: Non-labored respirations and equal bilateral excursions. CARDIOVASCULAR: Regular rate with regular rhythm. Palpable 2+ radial pulses. ABDOMEN: Soft. Skin changes noted along the right flank and pubis with crepitus. MUSCULOSKELETAL: No clubbing, cyanosis. 2+ bilateral edema. Foul-smelling right inguinal crease with edema extending from mid pubis to right flank NEUROLOGIC: No focal or lateralizing signs. Cranial nerves II through XII grossly intact. PSYCH: Flat affect. Alert and oriented person. SKIN: Cool extremities. LABS: Reviewed STUDIES: Reviewed ASSESSMENT: 1. Necrotizing fasciitis per finding on computed tomography scan 2. Uncontrolled diabetes type 2 with DKA 3. Septic shock due to necrotizing fasciitis 4. Morbid obesity due to excess calories PLAN: 1. I personally spoke to the admitting attending as computed tomography scan demonstrates emphysematous changes and erroneously noted open wound that is not present. Findings consistent with necrotizing fasciitis. 2. Recommend immediate transfer to tertiary care center for surgical debridement, hyperbaric treatment, surgical critical care, and plastic surgical team after stabilization in ICU 3. I discussed with the patient's family aggressive medical and surgical treatment needed with patient's septic shock 4. Will need broad-spectrum antibiotics, patient has penicillin ALLERGY. Immediate notification to infectious disease consultation and advised. Thank you for this kind consultation. Past Medical History Past Medical History: Diabetes Mellitus, Fibromyalgia, Thyroid Disorder Additional Past Medical History / Comment(s): valley fever History of Any Multi-Drug Resistant Organisms: None Reported Past Surgical History: Section, Cholecystectomy Additional Past Surgical History / Comment(s): partial thyroidectomy Past Anesthesia/Blood Transfusion Reactions: Postoperative Nausea & Vomiting ( PONV) Additional Past Anesthesia/Blood Transfusion Reaction / Comm: no hx of BT Smoking Status: Never smoker - Past Family History Father Additional Family Medical History / Comment(s): from "blood clot" after surgery. Pt can't remember the name of the surgery Mother Additional Family Medical History / Comment(s): severe arthritis Medications and Allergies Home Medications Medication Instructions Recorded Confirmed Type [id number] 1 tab PO Q4HR PRN 04/14/18 04/14/18 History [Excedrin] Ibuprofen [Motrin Ib] 400 mg PO Q6H PRN 04/14/18 04/14/18 History Allergies Allergy/AdvReac Type Severity Reaction Status Date / Time amoxicillin Allergy Rash/Hives Verified 04/13/18 23:45 Penicillins Allergy Unknown Verified 04/13/18 23:45 Childhood any medication with Gold Allergy Unknown Uncoded 04/13/18 22:13 Surgical - Exam Vital Signs Temp Pulse Resp BP Pulse Ox 97.9 F 95 16 99/66 100 04/13/18 22:04 04/13/18 22:04 04/13/18 22:04 04/13/18 22:04 04/13/18 22:04 Results - Labs 04/15/18 06:00 04/15/18 06:00 Abnormal Lab Results - Last 24 Hours (Table) 04/14/18 04/14/18 04/14/18 Range/Units 12:58 20:38 23:36 WBC 20.8 H (3.8-10.6) k/uL RBC (3.80-5.40) m/uL Hgb 10.7 L (11.4-16.0) gm/dL Hct 33.8 L (34.0-46.0) % Neutrophils # (Manual) 17.60 H (1.3-7.7) k/uL Monocytes # (Manual) (0-1.0) k/uL Metamyelocytes # (Man) (0) k/uL Myelocytes # (Manual) (0) k/uL Sodium (137-145) mmol/L Carbon Dioxide (22-30) mmol/L BUN (7-17) mg/dL Glucose (74-99) mg/dL POC Glucose (mg/dL) 175 H (75-99) mg/dL Hemoglobin A1c 12.7 H (4.0-6.0) % Plasma Lactic Acid Esgundo (0.7-2.0) mmol/L Calcium (8.4-10.2) mg/dL Alkaline Phosphatase (38-126) U/L Total Protein (6.3-8.2) g/dL Albumin (3.5-5.0) g/dL Urine Appearance (Clear) Urine Protein (Negative) Urine Blood (Negative) Urine Bilirubin (Negative) Ur Leukocyte Esterase (Negative) Urine WBC (0-5) /hpf Urine WBC Clumps (None) /hpf Urine Bacteria (None) /hpf Urine Mucus (None) /hpf 04/14/18 04/15/18 04/15/18 Range/Units 23:36 05:57 06:00 WBC 20.2 H (3.8-10.6) k/uL RBC 3.76 L (3.80-5.40) m/uL Hgb 10.6 L (11.4-16.0) gm/dL Hct 32.5 L (34.0-46.0) % Neutrophils # (Manual) 16.50 H (1.3-7.7) k/uL Monocytes # (Manual) 1.62 H (0-1.0) k/uL Metamyelocytes # (Man) 0.40 H (0) k/uL Myelocytes # (Manual) 0.20 H (0) k/uL Sodium 131 L (137-145) mmol/L Carbon Dioxide 21 L (22-30) mmol/L BUN 21 H (7-17) mg/dL Glucose 180 H (74-99) mg/dL POC Glucose (mg/dL) 156 H (75-99) mg/dL Hemoglobin A1c (4.0-6.0) % Plasma Lactic Acid Segundo (0.7-2.0) mmol/L Calcium 8.1 L (8.4-10.2) mg/dL Alkaline Phosphatase 351 H (38-126) U/L Total Protein 5.5 L (6.3-8.2) g/dL Albumin 2.5 L (3.5-5.0) g/dL Urine Appearance (Clear) Urine Protein (Negative) Urine Blood (Negative) Urine Bilirubin (Negative) Ur Leukocyte Esterase (Negative) Urine WBC (0-5) /hpf Urine WBC Clumps (None) /hpf Urine Bacteria (None) /hpf Urine Mucus (None) /hpf 04/15/18 04/15/18 04/15/18 Range/Units 06:00 11:09 12:19 WBC (3.8-10.6) k/uL RBC (3.80-5.40) m/uL Hgb (11.4-16.0) gm/dL Hct (34.0-46.0) % Neutrophils # (Manual) (1.3-7.7) k/uL Monocytes # (Manual) (0-1.0) k/uL Metamyelocytes # (Man) (0) k/uL Myelocytes # (Manual) (0) k/uL Sodium 133 L (137-145) mmol/L Carbon Dioxide 20 L (22-30) mmol/L BUN 21 H (7-17) mg/dL Glucose 152 H (74-99) mg/dL POC Glucose (mg/dL) 158 H (75-99) mg/dL Hemoglobin A1c (4.0-6.0) % Plasma Lactic Acid Segundo (0.7-2.0) mmol/L Calcium 7.7 L (8.4-10.2) mg/dL Alkaline Phosphatase (38-126) U/L Total Protein (6.3-8.2) g/dL Albumin (3.5-5.0) g/dL Urine Appearance Cloudy H (Clear) Urine Protein 1+ H (Negative) Urine Blood Small H (Negative) Urine Bilirubin 1+ H (Negative) Ur Leukocyte Esterase Moderate H (Negative) Urine WBC 26 H (0-5) /hpf Urine WBC Clumps Occasional H (None) /hpf Urine Bacteria Rare H (None) /hpf Urine Mucus Rare H (None) /hpf 04/15/18 04/15/18 Range/Units 13:06 16:22 WBC (3.8-10.6) k/uL RBC (3.80-5.40) m/uL Hgb (11.4-16.0) gm/dL Hct (34.0-46.0) % Neutrophils # (Manual) (1.3-7.7) k/uL Monocytes # (Manual) (0-1.0) k/uL Metamyelocytes # (Man) (0) k/uL Myelocytes # (Manual) (0) k/uL Sodium (137-145) mmol/L Carbon Dioxide (22-30) mmol/L BUN (7-17) mg/dL Glucose (74-99) mg/dL POC Glucose (mg/dL) 220 H (75-99) mg/dL Hemoglobin A1c (4.0-6.0) % Plasma Lactic Acid Segundo 4.4 H* (0.7-2.0) mmol/L Calcium (8.4-10.2) mg/dL Alkaline Phosphatase (38-126) U/L Total Protein (6.3-8.2) g/dL Albumin (3.5-5.0) g/dL Urine Appearance (Clear) Urine Protein (Negative) Urine Blood (Negative) Urine Bilirubin (Negative) Ur Leukocyte Esterase (Negative) Urine WBC (0-5) /hpf Urine WBC Clumps (None) /hpf Urine Bacteria (None) /hpf Urine Mucus (None) /hpf Microbiology - Last 24 Hours (Table) 04/14/18 05:21 Urine Culture - Final Urine,Catheterized Diabetes panel 04/14/18 04/14/18 04/15/18 Range/Units 12:58 23:36 06:00 Sodium 131 L 133 L (137-145) mmol/L Potassium 4.0 3.7 (3.5-5.1) mmol/L Chloride 99 102 (98-107) mmol/L Carbon Dioxide 21 L 20 L (22-30) mmol/L BUN 21 H 21 H (7-17) mg/dL Creatinine 0.58 0.68 (0.52-1.04) mg/dL Glucose 180 H 152 H (74-99) mg/dL Hemoglobin A1c 12.7 H (4.0-6.0) % Calcium 8.1 L 7.7 L (8.4-10.2) mg/dL AST 29 (14-36) U/L ALT 19 (9-52) U/L Alkaline Phosphatase 351 H (38-126) U/L Total Protein 5.5 L (6.3-8.2) g/dL Albumin 2.5 L (3.5-5.0) g/dL Calcium panel 04/14/18 04/15/18 Range/Units 23:36 06:00 Calcium 8.1 L 7.7 L (8.4-10.2) mg/dL Albumin 2.5 L (3.5-5.0) g/dL Pituitary panel 04/14/18 04/15/18 Range/Units 23:36 06:00 Sodium 131 L 133 L (137-145) mmol/L Potassium 4.0 3.7 (3.5-5.1) mmol/L Chloride 99 102 (98-107) mmol/L Carbon Dioxide 21 L 20 L (22-30) mmol/L BUN 21 H 21 H (7-17) mg/dL Creatinine 0.58 0.68 (0.52-1.04) mg/dL Glucose 180 H 152 H (74-99) mg/dL Calcium 8.1 L 7.7 L (8.4-10.2) mg/dL Adrenal panel 04/14/18 04/15/18 Range/Units 23:36 06:00 Sodium 131 L 133 L (137-145) mmol/L Potassium 4.0 3.7 (3.5-5.1) mmol/L Chloride 99 102 (98-107) mmol/L Carbon Dioxide 21 L 20 L (22-30) mmol/L BUN 21 H 21 H (7-17) mg/dL Creatinine 0.58 0.68 (0.52-1.04) mg/dL Glucose 180 H 152 H (74-99) mg/dL Calcium 8.1 L 7.7 L (8.4-10.2) mg/dL Total Bilirubin 0.9 (0.2-1.3) mg/dL AST 29 (14-36) U/L ALT 19 (9-52) U/L Alkaline Phosphatase 351 H (38-126) U/L Total Protein 5.5 L (6.3-8.2) g/dL Albumin 2.5 L (3.5-5.0) g/dL - Imaging CT scan - abdomen: report reviewed, image reviewed CT scan - pelvis: report reviewed, image reviewed (I personally reviewed the computed tomography scan. Necrotizing fasciitis identified as patient has no open wound. Has moderate subcutaneous emphysema highly suspicious for gas- forming organism and necrotizing fasciitis extending from right flank to right thigh and pubis) Assessment and Plan (1) Necrotizing fasciitis Current Visit: Yes Status: Acute Code(s): M72.6 - NECROTIZING FASCIITIS SNOMED Code(s): 54963322 (2) Septic shock Current Visit: Yes Status: Acute Code(s): A41.9 - SEPSIS, UNSPECIFIED ORGANISM; R65.21 - SEVERE SEPSIS WITH SEPTIC SHOCK SNOMED Code(s): 04096487 (3) Morbid obesity due to excess calories Current Visit: Yes Status: Acute Code(s): E66.01 - MORBID (SEVERE) OBESITY DUE TO EXCESS CALORIES SNOMED Code(s): 940603015 (4) BMI 40.0-44.9, adult Current Visit: Yes Status: Acute Code(s): Z68.41 - BODY MASS INDEX (BMI) 40.0-44.9, ADULT SNOMED Code(s): 736362750
[2018-04-15 17:33] LABS: Glucose,Whole Blood 219 mg/dL (75-99)
[2018-04-15] MEDS ORDERED: metroNIDAZOLE 500 MG TAB PO SCH (17:45)
--- NOTE | 2018-04-15 18:12 | P.DS ---
Providers Date of admission: 04/14/18 00:06 Expected date of discharge: 04/15/18 Attending physician: Jennifer Child MD Consults: 04/15/18 13:42 Consult Physician Stat Consulting Provider: Betty Garcia Consult Reason/Comments: Possiabl abcess-induration to (R) abd-groin Do you want consulting provider notified?: Yes 04/15/18 13:47 Consult Physician Routine Consulting Provider: George Martinez Consult Reason/Comments: sepsis Do you want consulting provider notified?: Yes Consult Physician Routine Consulting Provider: Surendra Lomas Consult Reason/Comments: septic shock Do you want consulting provider notified?: Yes Primary care physician: Stated None Hospital Course: This is a 58-year-old female with past medical history significant for uncontrolled type 2 diabetes who presented to the hospital originally with generalized weakness and abdominal cramps. Patient was evaluated in the emergency room and was found to have mild DKA. She was started on insulin drip and was admitted to the hospital for further evaluation. Initial workup was negative for any source of infection including a normal urinalysis and a normal chest x-ray. No fever documented on admission. Last night elevated after midnight on the morning off 04/15 patient spiked a high-grade fever of 102.2 that he had no source of infection identified. Patient was seen by me this morning and was noted to be clammy and weak. Blood Pressure systolic was in the low 80s. A stat lactic acid was elevated at 4.4. Noted in the right lower quadrant/groin area and area induration and surrounding erythema concerning for underlying abscess formation. Computed tomography scan of the abdomen ordered with no acute intra-abdominal findings and radiologist report described large open wound in the right anterior abdomen extending up to the right flank. There was no fluid collection described. Patient was started on broad-spectrum antibiotic with vancomycin, Levaquin, and Flagyl. Blood culture sent. A surgical consultation requested and when the surgery reviewed the computed tomography scan imaging is edematous changes and highly suspected necrotizing fasciitis. She recommended transferring the patient to a tertiary care facility. I requested a different radiologist to read the computed tomography scan and addendum was added with extensive inflammatory changes and subcutaneous emphysema over the right mid to lower abdomen extending laterally into the right pelvis and groin region with concerns about necrotizing fasciitis. I spoke to the transfer team at and a surgeon kindly accepted the patient to transfer to surgical ICU for OR evaluation. Below is a list of her medical problems. 1. Severe sepsis with septic shock, patient received aggressive IV fluid hydration. MAP maintained >65. No vasopressor started as of yet. Awaiting repeat lactic acid. Patient received IV vancomycin, IV Levaquin, and IV Flagyl. Blood culture sent. 2. Suspected necrotizing fasciitis, patient will be transferred to for that surgical evaluation per hour surgeon request. 3. Uncontrolled type 2 diabetes mellitus with A1c of 12.7 secondary to noncompliance. Patient did not take any medication at home for long time. Currently blood glucose is well controlled with current insulin regimen. 4. Mild DKA on presentation, IV insulin drip was discontinued. Anion gap closed. 5. Urinary retention with more than 600 mL of urine on bladder scan. Status post Thao catheter insertion Patient's and her family at bedside including her and niece were updated about her critical clinical condition. They are agreeable to transfer patient to in [place]. All of their questions answered to their satisfaction. Patient Condition at Discharge: Critical Plan - Discharge Summary Discharge Rx Participant: No New Discharge Prescriptions: No Action [id number]-Ouxa-Szls [id number] [Excedrin] 1 tab PO Q4HR PRN PRN Reason: Migraine Headache Ibuprofen [Motrin Ib] 400 mg PO Q6H PRN PRN Reason: Pain Discharge Medication List Ymwdomw-Ucod-Kvaf [id number] [Excedrin] 1 tab PO Q4HR PRN 04/14/18 [History] Ibuprofen [Motrin Ib] 400 mg PO Q6H PRN 04/14/18 [History] Follow up Appointment(s)/Referral(s): None,Stated [Primary Care Provider] - 1-2 days Patient Instructions/Handouts: Diabetic Ketoacidosis (DC)
[2018-04-15] MEDS ORDERED: NOREPINEPHRINE 4 MG in SODIUM CHLORIDE 0.9% 250 ML IV SCH (18:15)
[2018-04-15] MEDS ORDERED: MORPHINE SULFATE 2 MG/ML SYRINGE IVP PRN (18:32)
[2018-04-15 18:45] VITALS: PULSE 74; TEMP 97
[2018-04-15 20:49] VITALS: BP 124/83; RESP 22
[2018-04-16] MEDS ORDERED: VANCOMYCIN 1,750 MG in SODIUM CHLORIDE 0.9% 500 ML 500 ML IVPB SCH (02:00)
== END 2018-04-15 22:06 | disposition short-term general hospital (02) | DRG 871 ==
LOC: EC 21:54 → 3SCARD 04-14 00:06 → 2SICU 04-15 17:23
PROVIDERS: ADMIT Internal Medicine; ATTEND Internal Medicine
DX: A41.9 Sepsis, unspecified organism (principal); E11.10 Type 2 diabetes mellitus with ketoacidosis without coma; M72.6 Necrotizing fasciitis; R65.21 Severe sepsis with septic shock; E87.1 Hypo-osmolality and hyponatremia; L03.311 Cellulitis of abdominal wall; Z68.41 Body mass index [BMI] 40.0-44.9, adult; B35.6 Tinea cruris; E06.3 Autoimmune thyroiditis; E89.0 Postprocedural hypothyroidism; E66.01 Morbid (severe) obesity due to excess calories; E86.0 Dehydration; M79.7 Fibromyalgia; J98.2 Interstitial emphysema; Z83.3 Family history of diabetes mellitus; T38.3X6A Underdosing of insulin and oral hypoglycemic [antidiabetic] drugs, initial encounter; Z91.120 Patient's intentional underdosing of medication regimen due to financial hardship; Z91.19 Patient's noncompliance with other medical treatment and regimen; Z90.49 Acquired absence of other specified parts of digestive tract; Z82.61 Family history of arthritis; Z83.2 Family history of diseases of the blood and blood-forming organs and certain disorders involving the immune mechanism; Z88.1 Allergy status to other antibiotic agents; Z88.8 Allergy status to other drugs, medicaments and biological substances
CPT/HCPCS: 36415; 71046; 74177; 80048; 80051; 80053; 81001; 82009; 82550; 82553; 82565; 82947; 83036; 83605; 83735; 84100; 84484; 84520; 85025; 85027; 85610; 85730; 87040; 87077; 87086; 87186; 87502; 93005; 96361; 96374; 99285